=== PATIENT | female | born 1990 | race Caucasian/White ===

== ENCOUNTER 2023-03-09 06:43 | Emergency (ER) | payer MEDICARE, SELFPAY ==
[2023-03-09 06:52] VITALS: BP 184/126; PULSE 119; RESP 18; TEMP 36.7; O2SAT 100; BMI 24.1
--- NOTE | 2023-03-09 07:58 | ED_ITS ---
HPI - General Adult General Chief complaint: Altered Mental Status Stated complaint: dizzy, nausea, confusion history of seizures Time Seen by Provider: 03/09/23 06:52 History of Present Illness HPI narrative: 32-year-old woman presenting to the emergency department having woken from a ? nightmare? and just not really being clear mentally since that time. Accompanied by her significant other. Does have a suspected history of seizure disorder and around 4 months ago was initiated on topiramate after similar episode that did require some hospitalization and a week or so to clear. Apparently does not carry a mental health diagnosis otherwise. Is reporting confusion and dizziness and nausea and headache on triage although denies nausea and headache to me during interview. Is also not particularly dizzy at the moment. During exam I see numerous scars look to be postoperative on extremities. Reports that in 2007 had bacterial meningitis. In sounds as though the thought of some of this all could have stemmed from that. She has not had fever recently. Was in usual state of health went to bed last night. On triage notes that was drinking alcohol this last night. She also discusses that has been having excessive/prolonged vaginal bleeding for quite some time. Waxes and wanes in severity. She sounds to be midcycle taking oral contraceptives. Not having any pain. Is bleeding a little bit at this time. Is not short of breath nor lightheaded nor with chest pain. Pending follow-up for this matter. No recent changes in medication. Does begin laughing when I inquire about nausea; it is not clear why this is funny. Seems an unusual response. 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, partial amputation of right thumb index finger middle finger, fasciotomies and skin grafting Related Data Home Medications Medication Instructions Recorded Confirmed gabapentin 600 mg tablet 1,200 mg PO Q6H 03/09/23 03/09/23 sucralfate 1 gram tablet 1 g PO QID 03/09/23 03/09/23 sumatriptan succinate 100 mg tablet 100 mg PO BID 03/09/23 03/09/23 topiramate 50 mg tablet 50 mg PO Q12H 03/09/23 03/09/23 Allergies Allergy/AdvReac Type Severity Reaction Status Date / Time hydromorphone Allergy Severe Anaphylaxis Verified 03/09/23 06:50 ibuprofen Allergy Severe Kidney Verified 03/09/23 06:50 Failure NSAIDS (Non-Steroidal Allergy Severe Kidney Verified 03/09/23 06:50 Anti-Inflamma Failure vancomycin Allergy Intermediate Alejandro Verified 03/09/23 06:50 Syndrome Review of Systems Status of ROS: Reports: 6 or more systems reviewed and unremarkable except as noted in History and below [facility] Social History Do you use any of these nicotine containing products: Vaping Products How often do you have a drink containing alcohol: 4 or more times a week How many standard drinks containing alcohol do you have on a typical day: 5 or 6 AUDIT-C Alcohol total score: 6 Non-prescribed substance use: denies use Exam Narrative: Exam Narrative: Pleasant. NAD. Odd affect. Deferring to significant other sometimes for answers. Seems just a little bit confused. Seems a little twitchy or uncomfortable a during exam. Is moving all extremities without difficulty. Cranial nerves 2-12 look to be intact. No nystagmus. Well perfused peripherally. There is a long superficial scratch on the dorsum of the right hand with thought there irregularly placed superficial scratches on forearms that I would think would be consistent with feline activity - this is affirmed later. This longer scratch is through the middle of stellate area of scar. She has numerous other surgical scars on arms and some other deeper scars particularly on the right leg is if perhaps a fasciotomy has been done. Acknowledges skin grafts later. Heart is in elevated to tachycardic rate in a regular rhythm. Lungs are clear. She is breathing easily. Abdomen is soft overweight nontender. No HSM appreciated. Const: Vital Signs, click to edit/add: Vital Signs - 24 hr 03/09/23 06:52 03/09/23 08:30 Temperature 98.1 F Pulse Rate [Left P ulse Oximeter] 119 H 108 H Respiratory Rate 18 18 Blood Pressure [Le ft Upper Arm] 184/126 H 180/103 H Pulse Oximetry 100 100 Oxygen Delivery Me thod Room Air Documenting provider has reviewed patient's vital signs: yes Course Vital Signs Vital signs: Initial Vital Signs Temperature 98.1 F 03/09/23 06:52 Temperature Source Temporal Artery Scan 03/09/23 06:52 Pulse Rate 119 H 03/09/23 06:52 Respiratory Rate 18 03/09/23 06:52 Blood Pressure 184/126 H 03/09/23 06:52 Blood Pressure Mean 145 03/09/23 06:52 Blood Pressure Position Sitting 03/09/23 06:52 Pulse Oximetry 100 03/09/23 06:52 Vital Signs Temperature 98.1 F 03/09/23 06:52 Pulse Rate 119 H 03/09/23 06:52 Respiratory Rate 18 03/09/23 06:52 Blood Pressure 184/126 H 03/09/23 06:52 Pulse Oximetry 100 03/09/23 06:52 Temperature 98.1 F 03/09/23 06:52 Pulse Rate 108 H 03/09/23 08:30 Respiratory Rate 18 03/09/23 08:30 Blood Pressure 180/103 H 03/09/23 08:30 Pulse Oximetry 100 03/09/23 08:30 Oxygen Delivery Method Room Air 03/09/23 08:30 Medical Decision Making MDM Narrative Medical decision making narrative: This certainly could be postictal. Compounded by alcohol --denies typically drinking to excess nor did she do so yesterday. Certainly with a seizure disorder this might have contributed to events overnight. It is unclear to me what baseline is. This could be mental health flare if you will of some sort as well. Other intracranial abnormality is also possibility. Mental status seems less likely related to anemia but I think is reasonable to check hemoglobin level. Global effect also potentially related to chemical/metabolic abnormalities. Does not appear to be an infectious etiology at this time. Puzzling history of intermittent encephalopathy. Will attempt to establish IV. Check labs and monitor here in the department. Anticipate reaching out to Neurology. [facility] Dr. Dumont On re-evaluation appears to be more calm a little clearer, laughing appropriately and easily. We have struggled to establish IV due to scarring and so doing peripheral blood draw only at this time. I am anticipating handoff at change of shift pending labs and likely conversation with Neurology. Lab Data Labs: Lab Results 03/09/23 Range/Units 08:20 WBC 8.29 (4.50-11.00) K/uL RBC 5.02 (4.00-5.20) m/uL Hgb 12.5 (12.0-16.0) gm/dL Hct 41.0 (33.0-51.0) % MCV 82 (80-100) fL MCH 25 L (26-34) pg MCHC 31 L (32-36) gm/dL RDW Coeff of Natasha 18.3 H (11.5-15.5) % Plt Count 415 (140-440) K/uL Neut % (Auto) 56.3 (42.0-72.0) % Lymph % (Auto) 24.4 (20-44) % [place] % (Auto) 9.3 (0.0-11.0) % Eos % (Auto) 9.5 H (0.0-7.0) % Baso % (Auto) 0.4 (0.0-3.0) % Neut # (Auto) 4.67 (1.7-7.0) K/uL Lymph # (Auto) 2.02 (0.90-2.90) K/uL [place] # (Auto) 0.80 (0.00-0.90) K/UL Eos # (Auto) 0.80 H (0.00-0.50) K/uL Baso # (Auto) 0.03 (0.00-0.30) K/uL Lactate 0.9 (0.5-1.9) mmol/L Magnesium Cancelled Total Bilirubin Cancelled Direct Bilirubin Cancelled AST Cancelled ALT Cancelled Alkaline Phosphatase Cancelled Total Protein Cancelled Albumin Cancelled Discharge Plan Discharge Clinical Impression: Menometrorrhagia, Altered mental status Patient Disposition: Home w/ Parent or Adult Additional Instructions: Please follow-up with neurology in the next 2 weeks. Get quality and regular sleep. Avoid alcoholingestion at this time. Prescriptions: No Action gabapentin 600 mg tablet 1,200 mg PO Q6H sucralfate 1 gram tablet 1 g PO QID topiramate 50 mg tablet 50 mg PO Q12H Patient Comments: TAKE 1 TAB IN THE AM AND 2 TABS AT NIGHT sumatriptan succinate 100 mg tablet 100 mg PO BID Patient Comments: take 1 tablet po as directed, may repeat after two hours Follow Up/Referrals: Denise Valdez MD [Primary Care Provider] - Stand Alone Forms: [facility] Info Instructions
[2023-03-09 08:27] LABS: Lactate* 0.9 mmol/L (0.5-1.9)
[2023-03-09 08:30] VITALS: BP 180/103; PULSE 108; RESP 18; O2SAT 100
[2023-03-09 08:32] LABS: Basophils Absolute Auto 0.03 K/uL (0.00-0.30); Basophils Percent Auto 0.4 % (0.0-3.0); Eosinophils Percent Auto 9.5 % (0.0-7.0); Hemoglobin* 12.5 gm/dL (12.0-16.0); Immature Granulocytes Abs Auto 0.01 K/uL (0.00-0.30); Immature Granulocytes Pct Auto 0.1 %; Lymphocytes Absolute Auto 2.02 K/uL (0.90-2.90); Lymphocytes Percent Auto 24.4 % (20-44); Mean Corpuscular HGB Conc 31 gm/dL (32-36); Mean Corpuscular Hemoglobin 25 pg (26-34); Mean Corpuscular Volume 82 fL (80-100); Monocytes Percent Auto 9.3 % (0.0-11.0); Neutrophils Absolute Auto 4.67 K/uL (1.7-7.0); Neutrophils Percent Auto 56.3 % (42.0-72.0); Platelet Count* 415 K/uL (140-440); RDW Coefficient of Variation % 18.3 % (11.5-15.5); Red Blood Count 5.02 m/uL (4.00-5.20); White Blood Count* 8.29 K/uL (4.50-11.00)
[2023-03-09 08:38] LABS: Slide Review Reflex No
[2023-03-09 08:50] LABS: Albumin* 4.3 g/dL (3.3-5.0); Chloride* 104 mmol/L (96-114)
[2023-03-09 08:50] LABS: SARS PCR* Negative SARS-CoV-2 (Negative)
[2023-03-09 08:51] LABS: Potassium* 3.4 mmol/L (3.6-5.1); Sodium* 139 mmol/L (135-149)
[2023-03-09 08:53] LABS: Alkaline Phosphatase* 123 U/L (40-150); Aspartate Amino Transferase* 26 U/L (12-35); Bilirubin Direct* 0.3 mg/dL (0.0-0.5); Bilirubin Total* 0.4 mg/dL (0.1-1.5); Carbon Dioxide* 24 mmol/L (20-32); Creatinine* 1.2 mg/dL (0.5-1.5); Est. Creatinine Clearance* 59.44; Estimated Glomerular Filt Rate 61 ml/min; Total Protein* 7.4 g/dL (6.0-8.3)
[2023-03-09 08:54] LABS: Alanine Aminotransferase* 26 U/L (4-35); Blood Urea Nitrogen* 21 mg/dL (5-24); Calcium* 9.8 mg/dL (8.4-10.6); Glucose* 95 mg/dL (60-115)
[2023-03-09 08:56] LABS: C Reactive Protein* 0.7 mg/dL (0.5-1.0); Ethanol* < 0.01 % (0.01-0.03)
[2023-03-09 09:10] LABS: Magnesium* 1.6 mg/dL (1.5-2.6)
[2023-03-09 09:24] LABS: Thyroid Stimulating Hormone* 0.187 uIU/mL (0.270-4.20)
[2023-03-09 10:10] VITALS: BP 168/110; PULSE 92; RESP 18; O2SAT 100
--- NOTE | 2023-03-09 10:14 | ED.NURSE ---
pt has been sleeping. s/o at bedside. pt attempted to give urine sample without success.
[2023-03-09 11:23] LABS: Free T4 Free Thyroxine* 1.05 ng/dL (0.70-1.85)
[2023-03-09 11:53] LABS: Ammonia* < 9.0 umol/L (13.1-30.0)
[2023-03-09 12:40] VITALS: BP 157/107; PULSE 94; RESP 18; O2SAT 100
[2023-03-09 12:56] LABS: Appearance Urine Clear (Clear); Bilirubin Urine Negative (Negative); Blood Urine Negative (Negative); Color Urine Yellow (Yellow); Glucose Urine Negative (Negative); Ketones Urine Negative (Negative); Leukocyte Esterase Urine Negative (Negative); Nitrite Urine Negative (Negative); Protein Urine 3+ (Negative); Specific Gravity Urine >= 1.030 (1.000-1.030); Urobilinogen Urine 0.2 (0.2-1.0)
[2023-03-09 12:57] LABS: HCG Qualitative* Negative (Negative)
[2023-03-09 13:01] LABS: Amphetamine Screen Urine Negative (Negative); Barbiturate Screen Urine Negative (Negative); Benzodiazepines Screen Urine Negative (Negative); Cannabinoid Screen Urine Negative (Negative); Cocaine Screen Urine Negative (Negative); Methadone Screen Urine Negative (Negative); Methamphetamines Screen Urine Negative (Negative); Opiate Screen Urine Negative (Negative); Oxycodone Screen Urine Negative (Negative); Phencyclidine Screen Urine Negative (Negative)
[2023-03-09 13:04] LABS: Tricyclic Antidepressant Urine POSITIVE (Negative)
[2023-03-09 13:05] LABS: Bacteria Urine Moderate; RBC Urine 0-2 (0-2); Squamous Epithelial Cell Urine Moderate (None-Few)
[2023-03-11 14:18] LABS: Topiramate <1.5 ug/mL (5.0-20.0)
== END 2023-03-09 13:52 | disposition home or self-care (01) ==
PROVIDERS: Emergency Medicine Emergency Medical Services; Emergency Provider Family Medicine; PCP Family Medicine
DX: R41.82 Altered mental status, unspecified (principal); N92.1 Excessive and frequent menstruation with irregular cycle
CPT/HCPCS: 36415; 80048; 80076; 80201; 80306; 81001; 82077; 82140; 83605; 83735; 84439; 84443; 84703; 85025; 86140; 87086; 87186; 87635; 99283; 99284

== ENCOUNTER 2024-01-11 10:38 | Emergency (ER) | payer MEDICARE, SELFPAY ==
[2024-01-11 10:52] VITALS: BP 169/116; PULSE 100; RESP 18; O2SAT 94; BMI 28.3
--- NOTE | 2024-01-11 11:24 | ED_ITS ---
HPI - General Adult General Chief complaint: Nausea/Vomiting Stated complaint: N/V Time Seen by Provider: 01/11/24 10:44 History of Present Illness HPI narrative: This 33-year-old female comes in reporting nausea and vomiting due to withdrawal symptoms from gabapentin. The nurse reports that she does occasionally use marijuana now also. She states that she typically takes 1200 mg of gabapentin 4 times a day. This is an excessive dose from the max guidelines however she states that she has been taking this for many years. She reports that her last dose was 3 days ago and she was unable to get connected with her doctor for refill. She reports another time where she had similar symptoms she suddenly stop this medicine. Related Data Home Medications Medication Instructions Recorded Confirmed gabapentin 600 mg tablet 1,200 mg PO Q6H 03/09/23 04/24/23 sucralfate 1 gram tablet 1 g PO QID 03/09/23 04/24/23 sumatriptan succinate 100 mg tablet 100 mg PO BID 03/09/23 04/24/23 topiramate 50 mg tablet 50 mg PO Q12H 03/09/23 04/24/23 Previous Rx's Medication Instructions Recorded ondansetron 4 mg disintegrating 4 mg PO BID-TID PRN nausea and 04/24/23 tablet vomiting #14 tabs gabapentin 600 mg tablet 600 mg PO TID #90 tabs 01/11/24 Allergies Allergy/AdvReac Type Severity Reaction Status Date / Time hydromorphone Allergy Severe Anaphylaxis Verified 03/09/23 06:50 ibuprofen Allergy Severe Kidney Verified 03/09/23 06:50 Failure NSAIDS (Non-Steroidal Allergy Severe Kidney Verified 03/09/23 06:50 Anti-Inflamma Failure vancomycin Allergy Intermediate Alejandro Verified 03/09/23 06:50 Syndrome Review of Systems Status of ROS: Reports: 10 or more systems reviewed and unremarkable except as noted in History and below Narrative: Constitutional: No fevers, no weight gain or loss. Eyes: No discharge. No vision changes. HENT: No congestion, no sore throat, no ear pain. Cardiovascular: No chest pain, no palpitations. Respiratory: No shortness of breath, no wheezes, no cough. Gastrointestinal: No abdominal pain. Nausea and vomiting. Genitourinary: No dysuria, no hematuria. Musculoskeletal: Normal range of motion. Skin: No rashes, no pruritis. Neurological: No dizziness, weakness, sensory change, speech change. Endo/Heme/Allergies: No bruising or bleeding. No polydipsia. Pysch: no suicidality, no anxiety, no insomnia. All other systems reviewed and are negative. [facility] Medical History Meningitis ?G03.9 - Meningitis, unspecified (ICD-10) Neuropathy ?G62.9 - Polyneuropathy, unspecified (ICD-10) Migraine headache ?G43.909 - Migraine, unspecified, not intractable, without status migrainosus (ICD-10) Seizure disorder ?G40.909 - Epilepsy, unspecified, not intractable, without status epilepticus (ICD-10) Social History Do you use any of these nicotine containing products: Vaping Products How often do you have a drink containing alcohol: 4 or more times a week How many standard drinks containing alcohol do you have on a typical day: 5 or 6 AUDIT-C Alcohol total score: 6 Non-prescribed substance use: denies use Exam Narrative: Exam Narrative: Constitutional: Well-developed, well-nourished, no acute distress. HEENT: Normocephalic, atraumatic. Neck: Normal range of motion. Nontender. Supple. Heart: Regular. No murmurs. Normal rate. Intact distal pulses. Lungs: Clear to auscultation. No chest discomfort. No wheezes, rhonchi, or rales. Abdomen: Normal bowel sounds. Nontender. No rebound tenderness. Genitalia: Deferred. Back: No midline tenderness. Normal range of motion. Extremities: Normal range of motion. No injury. Skin: Intact. No rash. Warm. No erythema or pallor. Neurologic: No altered sensation. No weakness. Alert and oriented. Psychiatric: No suicidality. No anxiety or depression. No insomnia. Nursing notes and vitals signs are reviewed. Const: Vital Signs, click to edit/add: Vital Signs - 24 hr 01/11/24 10:52 Pulse Rate [Left P ulse Oximeter] 100 Respiratory Rate 18 Blood Pressure [Ri ght Upper Arm] 169/116 H Pulse Oximetry 94 Oxygen Delivery Me thod Room Air Course Vital Signs Vital signs: Initial Vital Signs Pulse Rate 100 01/11/24 10:52 Pulse Rhythm Regular 01/11/24 10:52 Pulse Strength 3+ Normal 01/11/24 10:52 Respiratory Rate 18 01/11/24 10:52 Blood Pressure 169/116 H 01/11/24 10:52 Blood Pressure Mean 133 H 01/11/24 10:52 Blood Pressure Position Sitting 01/11/24 10:52 Pulse Oximetry 94 01/11/24 10:52 Oxygen Delivery Method Room Air 01/11/24 10:52 Vital Signs Pulse Rate 100 01/11/24 10:52 Respiratory Rate 18 01/11/24 10:52 Blood Pressure 169/116 H 01/11/24 10:52 Pulse Oximetry 94 01/11/24 10:52 Oxygen Delivery Method Room Air 01/11/24 10:52 Pulse Rate 100 01/11/24 10:52 Respiratory Rate 18 01/11/24 10:52 Blood Pressure 169/116 H 01/11/24 10:52 Pulse Oximetry 94 01/11/24 10:52 Oxygen Delivery Method Room Air 01/11/24 10:52 Medical Decision Making [facility] Narrative Medical decision making narrative: This patient comes in with nausea and vomiting symptoms due to sudden stop of her large dose of gabapentin. She does arrive with reassuring vital signs. Her heart rate is in normal range and blood pressure is not low. She does have some moisture in her mouth. I did offer IV fluids but indicated this was not mandatory. The patient did receive oral doses of gabapentin 1200 mg and Zofran 4 mg here. A prescription for these same medicines is provided. The patient is instructed to follow-up with her primary physician for ongoing refills. Discharge Plan Discharge Additional Instructions: Take medication as prescribed. Follow up with primary physician for ongoing refills. Return if worsening. Prescriptions: New gabapentin 600 mg tablet 600 mg PO TID Qty: 90 2RF No Action gabapentin 600 mg tablet 1,200 mg PO Q6H sucralfate 1 gram tablet 1 g PO QID topiramate 50 mg tablet 50 mg PO Q12H Patient Comments: TAKE 1 TAB IN THE AM AND 2 TABS AT NIGHT sumatriptan succinate 100 mg tablet 100 mg PO BID Patient Comments: take 1 tablet po as directed, may repeat after two hours ondansetron 4 mg tablet,disintegrating 4 mg PO BID-TID PRN (Reason: nausea and vomiting) Qty: 14 0RF Follow Up/Referrals: Denise Valdez MD [Primary Care Provider] - Stand Alone Forms: [employer] Info Instructions
[2024-01-11] MEDS: ONDANSETRON ODT 4 MG TAB PO (11:33)
[2024-01-11] MEDS: GABAPENTIN 600 MG TABLET 1200 MG PO (11:33)
== END 2024-01-11 11:43 | disposition home or self-care (01) ==
LOC: ED 11:34
PROVIDERS: Emergency Provider Emergency Medicine Emergency Medical Services; PCP Family Medicine
DX: R11.2 Nausea with vomiting, unspecified (principal)
CPT/HCPCS: 99282; 99283; 99284; A9270